=== PATIENT | male | born 1955 | race Caucasian/White ===

== ENCOUNTER 2017-08-28 07:00 | Day surgery (SDC) | payer OTHER ==
[~2017-08-28] VITALS: Ht 172.7 cm; Wt 85.5 kg
[2017-08-28] MEDS ORDERED: LIDOCAINE HCL 2% 5 ML JELLY TP ONE (07:01)
[2017-08-28] MEDS ORDERED: LIDOCAINE HCL 4% 50 ML SOLUTION TP ONE (07:01)
[2017-08-28] MEDS ORDERED: BENZOCAINE 20% 50 MCG/SPRAY 57 GM TP ONE (07:01)
[2017-08-28] MEDS ORDERED: ALBUTEROL SULFATE 2.5 MG/0.5 ML NEB SOLUTION NEB ONE (07:01)
[2017-08-28] MEDS ORDERED: SODIUM CHLORIDE 0.9% 1,000 ML IV ONE ×2 (07:21→08:00)
[2017-08-28] MEDS ORDERED: MIDAZOLAM HCL 2 MG/2 ML VIAL ONE (07:34)
[2017-08-28] MEDS ORDERED: FentaNYL CITRATE-PF 100 MCG/2 ML VIAL ONE (07:34)
[2017-08-28] MEDS ORDERED: FERR-89 PO (08:06)
[2017-08-28] MEDS ORDERED: ASPI81TA39 PO (08:06)
[2017-08-28] MEDS ORDERED: DULO60CA44 PO (08:06)
[2017-08-28] MEDS ORDERED: TRIA15CR48 TP (08:06)
[2017-08-28] MEDS ORDERED: [UNRECOGNIZED DRUG - CODE] TP (08:06)
[2017-08-28] MEDS ORDERED: CETI-290 PO (08:06)
[2017-08-28] MEDS ORDERED: BECL8.7A7 IH (08:06)
[2017-08-28] MEDS ORDERED: IPRAHFA IH (08:06)
[2017-08-28] MEDS ORDERED: LUTE20CA PO (08:06)
[2017-08-28] MEDS ORDERED: MONT10TA21 PO (08:06)
[2017-08-28] MEDS ORDERED: FLUT16H NASAL (08:06)
[2017-08-28] MEDS ORDERED: PRED10 PO (08:06)
[2017-08-28] MEDS ORDERED: LOSA25TA21 PO (08:06)
[2017-08-28] MEDS ORDERED: QUET200T PO (08:06)
[2017-08-28] MEDS ORDERED: RANI150T7 PO (08:06)
[2017-08-28] MEDS ORDERED: ATOR40TA28 PO (08:06)
[2017-08-28] MEDS ORDERED: MULT1TAB70 PO (08:06)
[2017-08-28] MEDS ORDERED: GLYC1TAB11 PO (08:06)
[2017-08-28] MEDS ORDERED: TRAZ-147 PO (08:06)
[2017-08-28] MEDS ORDERED: ALBU8.5H8 IH (08:06)
[2017-08-28] MEDS ORDERED: MOME13HF IH (08:06)
[2017-08-28] MEDS ORDERED: MethylPREDNISolone SOD SUCC 125 MG/2 ML VIAL IVP ONE (08:30)
[2017-08-28] MEDS ORDERED: MethylPREDNISolone SOD SUCC 125 MG/2 ML VIAL ONE (09:08)
[2017-08-28] MEDS ORDERED: OXYGEN THERAPY IH SCH (20:00)
== END 2017-08-28 10:30 | disposition home or self-care (01) ==
LOC: SURGERY 07:00
PROVIDERS: ATTEND Internal Medicine Critical Care Medicine
DX: J38.4 Edema of larynx (principal); B37.0 Candidal stomatitis; J45.909 Unspecified asthma, uncomplicated; M19.90 Unspecified osteoarthritis, unspecified site; F12.21 Cannabis dependence, in remission; Z87.891 Personal history of nicotine dependence; Z79.52 Long term (current) use of systemic steroids; Z79.01 Long term (current) use of anticoagulants; Z79.82 Long term (current) use of aspirin; Z79.899 Other long term (current) drug therapy
CPT/HCPCS: 31623; 31624; 71045; 87015; 87070; 87077; 87186; 87205; 87220; 88108; 88312; J2250; J2930; J3010; J7030

== ENCOUNTER → 2019-07-13 | Day surgery (SDC) | payer OTHER ==
[~2019-07-13] VITALS: Ht 175.3 cm; Wt 83.6 kg
[~2019-07-13] MED LIST: ALBU8.5H8 IH; ALBUTEROL SULFATE 2.5 MG/0.5 ML NEB SOLUTION NEB ONE; ASPI81TA39 PO; ATOR40TA28 PO; BECL8.7A7 IH; BENZOCAINE 20% 50 MCG/SPRAY 57 GM TP ONE; CETI10TA59 PO; DULO60CA44 PO; FERR-89 PO; FLUT16H NASAL; FentaNYL CITRATE-PF 100 MCG/2 ML VIAL ONE; GLYC1TAB11 PO; IPRAHFA IH; LIDOCAINE 2% 30 ML JELLY TP ONE; LIDOCAINE 4% 50 ML SOLUTION TP ONE; LOSA25TA41 PO; LUTE20CA PO; MIDAZOLAM HCL 2 MG/2 ML VIAL ONE; MOME13HF IH; MONT10TA21 PO; MULT1TAB70 PO; MethylPREDNISolone SOD SUCC 125 MG/2 ML VIAL IVP ONE; MethylPREDNISolone SOD SUCC 125 MG/2 ML VIAL ONE; OXYGEN THERAPY IH SCH; PRED10 PO; QUET200T PO; RANI150T7 PO; SODIUM CHLORIDE 0.9% 1,000 ML IV ONE; SODIUM CHLORIDE 0.9% 1,000 ML ONE; TRAZ-220 PO; TRIA15CR48 TP; [UNRECOGNIZED DRUG - CODE] TP
== END | disposition home or self-care (01) ==
LOC: SURGERY 06:39
PROVIDERS: ATTEND Internal Medicine Critical Care Medicine
DX: R05 Cough (principal); R91.1 Solitary pulmonary nodule; J34.89 Other specified disorders of nose and nasal sinuses; J98.8 Other specified respiratory disorders; J38.4 Edema of larynx; B37.0 Candidal stomatitis; I10 Essential (primary) hypertension; E11.9 Type 2 diabetes mellitus without complications; E78.5 Hyperlipidemia, unspecified; K21.9 Gastro-esophageal reflux disease without esophagitis; Z79.899 Other long term (current) drug therapy
CPT/HCPCS: 31623; 31624; 71045; 87015; 87070; 87101; 87205; 87206; 87220; 88108; 88312; 93005; J2250; J2930; J3010; J7030

== ENCOUNTER 2023-06-03 05:47 | Day surgery (SDC) | payer OTHER ==
[~2023-06-03] VITALS: Ht 175.3 cm; Wt 72.6 kg
[~2023-06-03 05:47] MED LIST changes: -ALBUTEROL SULFATE 2.5 MG/0.5 ML NEB SOLUTION NEB ONE; -BENZOCAINE 20% 50 MCG/SPRAY 57 GM TP ONE; +CETI-450 PO; -CETI10TA59 PO; +DULO-113 PO; -DULO60CA44 PO; -FERR-89 PO; +FERR325T27 PO; -FLUT16H NASAL; +FLUT16SP NASAL; -FentaNYL CITRATE-PF 100 MCG/2 ML VIAL ONE; -GLYC1TAB11 PO; +GLYC1TAB27 PO; -LIDOCAINE 2% 30 ML JELLY TP ONE; -LIDOCAINE 4% 50 ML SOLUTION TP ONE; +LOSA-381 PO; -LOSA25TA41 PO; -MIDAZOLAM HCL 2 MG/2 ML VIAL ONE; -MOME13HF IH; +MOME13HF11 IH; +MONT-35 PO; -MONT10TA21 PO; +MULT-660 PO; -MULT1TAB70 PO; -MethylPREDNISolone SOD SUCC 125 MG/2 ML VIAL IVP ONE; -MethylPREDNISolone SOD SUCC 125 MG/2 ML VIAL ONE; -OXYGEN THERAPY IH SCH; +PRED-729 PO; -PRED10 PO; -SODIUM CHLORIDE 0.9% 1,000 ML IV ONE; -SODIUM CHLORIDE 0.9% 1,000 ML ONE; -TRAZ-220 PO; +TRAZ-257 PO
[2023-06-03] MEDS ORDERED: SODIUM CHLORIDE 0.9% 1,000 ML IV ONE (07:00)
[2023-06-03] MEDS ORDERED: SODIUM CHLORIDE 0.9% 1,000 ML ONE (07:49)
[2023-06-03] MEDS ORDERED: FAMO20 PO (07:57)
[2023-06-03] MEDS ORDERED: ASPI-1444 PO (07:58)
[2023-06-03] MEDS ORDERED: ALEN35TA41 PO (08:01)
[2023-06-03] MEDS ORDERED: PROP60CA31 PO (08:10)
[2023-06-03] MEDS ORDERED: LINA290C PO (08:11)
[2023-06-03] MEDS ORDERED: PRED-729 PO (08:17)
[2023-06-03] MEDS ORDERED: OMEP20 PO (08:18)
[2023-06-03] MEDS ORDERED: GLYC1TAB27 PO (08:20)
[2023-06-03] MEDS ORDERED: GABA-1181 PO (08:20)
[2023-06-03] MEDS ORDERED: MIDAZOLAM HCL 2 MG/2 ML VIAL ONE (08:21)
[2023-06-03] MEDS ORDERED: LOSA-382 PO (08:21)
[2023-06-03] MEDS ORDERED: BACL10TA PO (08:22)
[2023-06-03] MEDS ORDERED: FentaNYL CITRATE PF 100 MCG/2 ML VIAL ONE (08:22)
[2023-06-03] MEDS ORDERED: BENZ-227 PO (08:23)
[2023-06-03] MEDS ORDERED: DOXY75CA5 PO (08:24)
[2023-06-03] MEDS ORDERED: ALBU18HF12 IH (08:26)
[2023-06-03] MEDS ORDERED: FLUT1BLS10 IH (08:27)
[2023-06-03 08:53] VITALS: PULSE 69; RESP 29; O2SAT 100
[2023-06-03] MEDS ORDERED: MethylPREDNISolone SOD SUCC 125 MG/2 ML VIAL IVP ONE (09:00)
[2023-06-03] MEDS ORDERED: BENZOCAINE 20% 50 MCG/SPRAY 57 GM ONE (17:47)
[2023-06-03] MEDS ORDERED: LIDOCAINE 2% 11 ML JELLY ONE (17:47)
[2023-06-03] MEDS ORDERED: LIDOCAINE 4% 50 ML SOLUTION ONE (17:47)
== END 2023-06-03 11:00 | disposition home or self-care (01) ==
LOC: SURGERY 05:47
PROVIDERS: ATTEND Internal Medicine Critical Care Medicine
DX: J38.4 Edema of larynx (principal); B37.0 Candidal stomatitis; F31.9 Bipolar disorder, unspecified; F20.9 Schizophrenia, unspecified; Z98.890 Other specified postprocedural states; Z87.01 Personal history of pneumonia (recurrent)
CPT/HCPCS: 31623; 88112; 87206; 87101; 87220; 87070; 31624; 71045; 87015; J3010; J2930; Q9967; J7030; J2250; Z7610

== ENCOUNTER 2024-08-03 06:36 | Day surgery (SDC) | payer OTHER ==
[~2024-08-03] VITALS: Ht 175.3 cm; Wt 74.5 kg
[~2024-08-03 06:36] MED LIST changes: +ALBU18HF12 IH; -ALBU8.5H8 IH; +ALEN35TA41 PO; +ASPI-1444 PO; -ASPI81TA39 PO; +BACL10TA PO; -BECL8.7A7 IH; +BENZ-227 PO; +DOXY75CA5 PO; +FAMO20 PO; -FERR325T27 PO; +FLUT1BLS10 IH; +GABA-1181 PO; -IPRAHFA IH; +LINA290C PO; -LOSA-381 PO; +LOSA-382 PO; -LUTE20CA PO; -MOME13HF11 IH; +OMEP20 PO; +PROP60CA31 PO; -RANI150T7 PO; -TRIA15CR48 TP; -[UNRECOGNIZED DRUG - CODE] TP
[2024-08-03] MEDS ORDERED: LIDOCAINE 2% 11 ML JELLY TP ONE (06:37)
[2024-08-03] MEDS ORDERED: ALBUTEROL SULFATE 2.5 MG/0.5 ML NEB SOLUTION NEB ONE (06:37)
[2024-08-03] MEDS ORDERED: LIDOCAINE 4% 50 ML SOLUTION TP ONE (06:37)
[2024-08-03] MEDS ORDERED: BENZOCAINE 20% 50 MCG/SPRAY 57 GM TP ONE (06:37)
[2024-08-03] MEDS ORDERED: RINGERS SOLUTION,LACTATED 1,000 ML IV ONE (07:00)
[2024-08-03] MEDS ORDERED: QUET200T5 PO (07:12)
[2024-08-03] MEDS: SODIUM CHLORIDE 0.9% 1,000 ML IV ONE (07:36)
[2024-08-03] MEDS ORDERED: FentaNYL CITRATE PF 100 MCG/2 ML VIAL ONE (07:46)
[2024-08-03] MEDS ORDERED: MIDAZOLAM HCL 2 MG/2 ML VIAL ONE (07:46)
[2024-08-03 09:55] VITALS: PULSE 63; RESP 18; O2SAT 98
[2024-08-03] MEDS ORDERED: MethylPREDNISolone SOD SUCC 125 MG/2 ML VIAL ONE (10:14)
[2024-08-03] MEDS: MethylPREDNISolone SOD SUCC 125 MG/2 ML VIAL IVP ONE (10:33)
== END 2024-08-03 12:30 | disposition home or self-care (01) ==
LOC: SURGERY 06:36
PROVIDERS: ATTEND Internal Medicine Critical Care Medicine
DX: R05.3 Chronic cough (principal); R49.0 Dysphonia; R04.2 Hemoptysis; R06.1 Stridor; R91.1 Solitary pulmonary nodule; I49.3 Ventricular premature depolarization; I45.2 Bifascicular block; J45.909 Unspecified asthma, uncomplicated; F20.9 Schizophrenia, unspecified; F31.9 Bipolar disorder, unspecified; Z79.899 Other long term (current) drug therapy; Z98.890 Other specified postprocedural states
CPT/HCPCS: 31623; 87206; 87101; 87220; 87070; 88108; 31624; 71045; 87015; 93005; J3010; J2250; J2919; J7613; Z7610